=== PATIENT | female | born 1960 | race Caucasian/White ===

== ENCOUNTER 2019-01-06 13:11 | Emergency (ER) | payer OTHER, SELFPAY ==
[2019-01-06 14:04] LABS: Bacteria/HPF None Seen HPF (None Seen); Bilirubin Negative (Negative); Blood, Urine 1+ (Negative); Clarity Clear (Clear); Glucose, Urine (Dipstick) Normal (Negative); Leukocyte Negative Leu/uL (Negative); Nitrite Negative (Negative); Protein, Urine (Dipstick) Negative (Neg-Trace); RBC/HPF 0-3 HPF (0-3); Squamous Epithelial 0-3 HPF (0-3); Urobilinogen Normal mg/dL (Less than 2); WBC/HPF 0-3 HPF (0-3)
[2019-01-06 14:29] LABS: #Basophils 0.1 thou/uL (0.0-0.2); #Eosinphils 0.3 thou/uL (0.0-0.7); #Lymphocytes 2.7 thou/uL (1.20-3.40); #Monocytes 0.4 thou/uL (0.11-0.59); #Neutrophils 2.9 thou/uL (1.40-6.50); %Basophils 1.1 % (0.0-1.0); %Eosinophils 4.9 % (0.0-10.0); %Lymphocytes 42.4 % (21.0-51.0); %Monocytes 6.7 % (0.0-10.0); Hemoglobin 13.7 g/dL (12.0-16.0); Mean Corpuscular Hemoglobin 30.4 pg (27.0-31.0); Mean Corpuscular Volume 92.3 fL (78.0-98.0); Mean Platelet Volume 7.1 fL (7.4-10.4); Platelet Count 287 thou/uL (130-400); RBC Distribution Width 11.8 % (11.5-14.5); Red Blood Cell (RBC) Count 4.49 mill/uL (4.20-5.40); White Blood Cell (WBC) Count 6.4 thou/uL (4.8-10.8)
--- NOTE | 2019-01-06 14:42 | RAD ---
PA AND LATERAL CHEST: HISTORY: Chest pain and cough. FINDINGS: The heart size is normal. The lungs are expanded without focal areas of consolidation, pneumothoraces or pleural effusions. No acute osseous abnormalities are seen. IMPRESSION: No radiographic evidence of acute cardiopulmonary process. POS: OFF
[2019-01-06 15:00] LABS: ALT (SGPT) 99 U/L (8-55); AST (SGOT) 27 U/L (5-34); Albumin 4.2 g/dL (3.5-5.0); Alkaline Phosphatase 101 U/L (40-110); Anion Gap 13 mmol/L (10-20); BUN (Urea Nitrogen) 18 mg/dL (9.8-20.1); Bilirubin, Total 0.5 mg/dL (0.2-1.2); Calc. Creatinine Clearance 0 mL/min (70-130); Calcium 9.3 mg/dL (7.8-10.44); Carbon Dioxide 27 mmol/L (22-29); Chloride 103 mmol/L (98-107); Estimated GFR-MDRD 64; Globulin 2.6 g/dL (2.4-3.5); Glucose 134 mg/dL (70-105); Potassium 4.3 mmol/L (3.5-5.1); Protein, Total 6.8 g/dL (6.0-8.3); Sodium 139 mmol/L (136-145)
[2019-01-06] MEDS ORDERED: Aspirin Chewable 81 MG TAB ONE (16:42)
[2019-01-06 17:31] LABS: INR-International Normal Ratio 0.9; Prothrombin Time 12.3 SEC (12.0-14.7)
[2019-01-06 17:34] LABS: D-Dimer Test Less than 0.27 *mcg/mL (0.27-0.43)
== END 2019-01-06 20:48 | disposition home or self-care (01) ==
LOC: ERS 13:11
DX: R07.89 Other chest pain (principal)
CPT/HCPCS: 36415; 71046; 80053; 81003; 81015; 84484; 85025; 85379; 85610; 93005